=== PATIENT | female | born 1985 | race Caucasian/White ===

== ENCOUNTER 2018-06-20 12:45 | Day surgery (SDC) | payer BC ==
[2018-06-20] MEDS ORDERED: PROPOFOL 20 ML ONE (14:08)
[2018-06-20] MEDS ORDERED: DEXAMETHASONE SOD PHOSPHATE 4 MG/1 ML VIAL ONE (14:08)
[2018-06-20] MEDS ORDERED: SUCCINYLCHOLINE CHLORIDE 200 MG/10 ML VIAL ONE (14:08)
[2018-06-20] MEDS ORDERED: MIDAZOLAM HCL 2 MG/2 ML SINGLE DOSE VIAL ONE (14:08)
[2018-06-20] MEDS ORDERED: ONDANSETRON 4 MG/2 ML VIAL IVPUSH PRN ×2 (15:17→15:19)
[2018-06-20] MEDS ORDERED: ACETAMINOPHEN 1000 MG/100 ML VIAL (NON FORMULARY) IVPB ONE (15:17)
[2018-06-20] MEDS ORDERED: oxyCODONE HCL 5 MG TABLET PO PRN ×2 (15:17→15:19)
--- NOTE | 2018-06-20 15:18 | HP ---
History & Physical Update - History History: No Change (Consent signed and witnessed) - Physical Physical: No Change - Assessment Assessment: No Change - Plan Plan: No Change
[2018-06-20] MEDS ORDERED: IBUPROFEN 600 MG TABLET (FP) PO PRN (15:19)
[2018-06-20] MEDS ORDERED: IBUPROFEN 800 MG/8 ML IJ IVPB PRN (15:19)
--- NOTE | 2018-06-20 15:19 | OP ---
Operative Note - Note: Operative Date: 06/20/18 Pre-Operative Diagnosis: Metrorrhagia, Submucusal mass Operation: Hysteroscopy Myomectomy, Polypectomy, D&C Findings: Overgrown menstrual endometrium Submucosal fibroid and polyp Post-Operative Diagnosis: Same as Pre-op Surgeon: Elise Go Anesthesiologist/FACILITY EXAMINER: Toy Crabtree Anesthesia: MAC Estimated Blood Loss (mls): 0 Drains & Tubes with Location: Fluid defficit 150cc Drains, Volume Out (mls): 10 Fluid Volume Replaced (mls): 400 Operative Report Dictated: Yes
[2018-06-20] MEDS ORDERED: ELECTROLYTE-148 SOLN 1,000 ML IV SCH (15:30)
[2018-06-20] MEDS ORDERED: LACTATED RINGERS SOLUTION 1,000 ML IV SCH (15:30)
[2018-06-20 16:01] VITALS: TEMP 98.3
[2018-06-20 17:28] VITALS: BP 119/71; PULSE 55
--- NOTE | 2018-06-22 07:48 | OP ---
DATE OF OPERATION: 06/20/2018 PREOPERATIVE DIAGNOSIS: Menometrorrhagia, endometrial mass on the sonogram. OPERATION: Hysteroscopy, myomectomy, polypectomy, dilatation and curettage. FINDINGS: Overgrown menstrual endometrial submucosal fibroid and polyp. POSTOPERATIVE DIAGNOSIS: Menometrorrhagia, endometrial mass on the sonogram. SURGEON: Elise Go MD ANESTHESIOLOGIST: Amee Crabtree MD ANESTHESIA: MAC. DESCRIPTION OF THE OPERATIVE PROCEDURE: After assuring informed consent, patient was brought to the operating room where she was placed in dorsal lithotomy position. Perineum and vagina were prepped and draped in sterile fashion. Cervix was articulated with single-tooth tenaculum and gradually dilated to accommodate 6mm hysteroscope, RuffWire Symphion Compatible Hysteroscope was assembled, wide-balanced and primed and introduced gently without any difficulty into the uterus. Intrauterine contents were visualized. Bilateral ostia were visualized. Very overgrown endometrium as above noted was visualized. Left lateral wall polyp was noted and a posterior wall fibroid was noted. The Symphion Resectoscope was introduced through the hysteroscope, pathological structures were resected and collected via suction into the suction bag. Excellent integrity of the uterus was noted. Uterus was noted to be free of all pathological structures. Subsequently, all instruments were removed from the uterus, cervix, and vagina. Sponge and instrument counts were correct x2. Estimated blood loss was 0. Patient received 400 mL of IV fluids, put out 10 mL of urine, and fluid deficit was 150 mL. Patient was brought to the recovery room in stable condition. Dolores [id number] MTDD
--- NOTE | 2018-06-24 18:50 | PATH ---
Surgical Pathology Report Patient Name: LEONIE GALARZA [facility] [place]. Rec. #: [id number] /Age/Gender: 1985 (Age: 32) / F Account: [id number] Location: [facility] SURGICAL Taken: 06/20/2018 Received: 06/21/2018 Reported: 06/24/2018 Physicians: Elise Go M.D. Specimen(s) Received FIBROID AND POLYP Clinical History Intermenstrual bleeding-irregular Final Diagnosis FIBROTIC AND POLYP, EXCISION: ENDOMETRIAL POLYPS WITH FOCAL HEMORRHAGIC INFARCTION. SEPARATE SMOOTH MUSCLE BUNDLES. FRAGMENTS OF ENDOCERVICAL TISSUE WITH SQUAMOUS METAPLASIA. Electronically Signed Jacinda Villa M.D. Gross Description Received in formalin labeled "fibroid and polyp," is a 1 g, 3.0 x 1.7 x 0.3 cm aggregate of suarez soft tissue fragments. The formalin is filtered and the specimen is entirely submitted in 2 cassettes. /06/21/2018 saudi06/21/2018
== END 2018-06-20 17:15 | disposition home or self-care (01) ==
LOC: JASU-SURG 12:45
PROVIDERS: ATTEND Obstetrics & Gynecology
PROC: 0UJD8ZZ Inspection of Uterus and Cervix, Via Natural or Artificial Opening Endoscopic (ICD-10-PCS; 2018-06-20)
PROC: 0UB97ZX Excision of Uterus, Via Natural or Artificial Opening, Diagnostic (ICD-10-PCS; principal; 2018-06-20 14:00)
PROC: 0UDB7ZX Extraction of Endometrium, Via Natural or Artificial Opening, Diagnostic (ICD-10-PCS; 2018-06-20 14:00)
DX: N92.1 Excessive and frequent menstruation with irregular cycle (principal); N84.0 Polyp of corpus uteri
CPT/HCPCS: 84703; 88305-TC; 94760; J0131